=== PATIENT | female | born 1980 | race African-American/Black ===

== ENCOUNTER 2017-04-06 11:35 | Emergency (ER) | payer BC, MEDICAID, OTHER ==
[2017-04-06 11:48] VITALS: RESP 16; TEMP 97.5
--- NOTE | 2017-04-06 12:15 | CPEKG ---
Heart Rate: 90 RR Interval: 667 P-R Interval: 168 QRSD Interval: 78 QT Interval: 328 QTC Interval: 402 P Argonne: 40 QRS Argonne: 23 T Wave Argonne: 11 EKG Severity - NORMAL ECG - EKG Impression: SINUS RHYTHM Electronically Signed By: Jarod Gillette 06-Apr-2017 14:50:02
--- NOTE | 2017-04-06 12:27 | EDPHY ---
H & P Stated Complaint: 2 WEEKS CHEST PAIN, SAW LUGGAGE LINER ON SUN, STARTED ON BP MED Time Seen by Provider: 04/06/17 12:26 - Personal History LMP (Females 10-55): Hysterectomy Current Tetanus Diphtheria and Acellular Pertussis (TDAP): Unsure - Medical/Surgical History Hx Asthma: No Hx Chronic Respiratory Disease: No Hx Diabetes: Yes Hx Cardiac Disease: No Hx Renal Disease: No Hx Cirrhosis: No Hx Alcoholism: No Hx HIV/AIDS: No Hx Splenectomy or Spleen Trauma: No Other PMH: DENIES - Social History Smoking Status: Light smoker Constitutional: Initial Vital Signs Temperature (C) 36.4 C 04/06/17 11:44 Heart Rate 98 04/06/17 11:44 Respiratory Rate 16 04/06/17 11:44 Blood Pressure 153/105 H 04/06/17 11:44 O2 Sat (%) 99 04/06/17 11:44 O2 Delivery Mode Room Air Allergies/Adverse Reactions: codeine Allergy (Verified 04/06/17 11:49) morphine Allergy (Verified 04/06/17 11:49) promethazine [From Phenergan] Allergy (Verified 04/06/17 11:49) Medical Decision Making ED Course/Re-evaluation: CHIEF COMPLAINT: Chest pain HISTORY OF PRESENT ILLNESS: This patient is a 36 year old female complaining of sharp left sided chest pains and dizziness for the last two weeks. She saw a cage clerk Sunday, four days ago and has had an EKG and lab work. She has had a US of her kidneys to rule out renal hypertension as well. She has just started Lisinopril. Her symptoms begin with dizziness, then shortness of breath, then shooting pains in her chest, then tachycardia. These episodes last from a couple minutes to one hour. They are generally worse when she is at rest. Today at work, she developed the chest pains again. This episode lasted one hour and her symptoms were still present when she arrived here, but are currently resolving. She denies any additional stress lately. She denies recent illness or trauma. No vomiting, shortness of breath, urinary complaints, or other associated symptoms. REVIEW OF SYSTEMS: A 10 point review of systems was performed and is negative with the exception of the elements mentioned in the history of present illness. PHYSICAL EXAM: HR, BP, O2 Sat, RR. Temp noted General Appearance: Alert, well hydrated, appropriate, and non-toxic appearing. Head: Atraumatic without scalp tenderness or obvious injury Eyes: Pupils equal, round, reactive to light and accommodation, EOMI, no trauma , no injection. Ears: Clear bilaterally, no perforation, normal landmarks Nose: Atraumatic, no rhinorrhea, clear. Throat: There is no erythema or exudates, no lesions, normal tonsils, mucus membranes moist. Neck: Supple, 2+ carotid upstroke, nontender, no lymphadenopathy. Respiratory: No retractions, no distress, no wheezes, and no accessory muscle use. Lungs are clear to auscultation bilaterally. Cardiovascular: Regular rate and rhythm, no murmurs, rubs, or gallops. Bilateral carotid, radial, dorsalis pedis, and posterior tibial pulses intact. Good capillary refill all extremities. Gastrointestinal: Abdomen is soft, nontender, non-distended, no masses, no rebound, no guarding, no peritoneal signs. Musculoskeletal: Normal active ROM of all extremities, atraumatic. Neurological: Alert, appropriate, and interactive. The patient has normal DTRs and non-focal cranial nerves, motor, sensory, and cerebellar exam. Skin: No rashes, good turgor, no nodules on palpation. Past medical history: Denies Past surgical history: Noncontributory Family history: Noncontributory Social history: Works as a vice president of finance. Lives in [place]. Occasional tobacco use. EKG: Sinus rhythm. Rate 90. DIFFERENTIAL DIAGNOSIS: The differential diagnosis for the patient's chest pain included but was not limited to myocardial ischemia, pulmonary embolus, chest wall pain, pleural inflammation, and pulmonary infectious causes. MEDICAL DECISION MAKIN36 y/o female presents with multiple episodes of chest pain over the last two weeks. Plan for EKG, labs including CBC, BMP, Troponin, D-dimer, and BNP. Plan for echocardiogram. Echocardiogram normal. Labs unremarkable. EKG shows Plan to discharge home in good condition. Follow up and return precautions discussed. The patient is comfortable with this plan. - Data Points Laboratory Results: Laboratory Results 04/06/17 12:10 04/06/17 12:10 04/06/17 04/06/17 04/06/17 12:10 12:10 12:10 WBC 4.50 10^3/uL 10^3/uL (3.80-9.50) RBC 5.11 10^6/uL 10^6/uL (4.18-5.33) Hgb 14.7 g/dL g/dL (12.6-16.3) Hct 43.6 % % (38.0-47.0) MCV 85.3 fL fL (81.5-99.8) MCH 28.8 pg pg (27.9-34.1) MCHC 33.7 g/dL g/dL (32.4-36.7) RDW 13.2 % % (11.5-15.2) Plt Count 305 10^3/uL 10^3/uL (150-400) MPV 10.3 fL fL (8.7-11.7) Neut % (Auto) 38.5 % L % (39.3-74.2) Lymph % (Auto) 49.6 % H % (15.0-45.0) Buchanan % (Auto) 8.4 % % (4.5-13.0) Eos % (Auto) 2.9 % % (0.6-7.6) Baso % (Auto) 0.4 % % (0.3-1.7) Nucleat RBC Rel Count 0.0 % % (0.0-0.2) Absolute Neuts (auto) 1.73 10^3/uL 10^3/uL (1.70-6.50) Absolute Lymphs (auto) 2.23 10^3/uL 10^3/uL (1.00-3.00) Absolute Monos (auto) 0.38 10^3/uL 10^3/uL (0.30-0.80) Absolute Eos (auto) 0.13 10^3/uL 10^3/uL (0.03-0.40) Absolute Basos (auto) 0.02 10^3/uL 10^3/uL (0.02-0.10) Absolute Nucleated RBC 0.00 10^3/uL 10^3/uL (0-0.01) Immature Gran % 0.2 % % (0.0-1.1) Immature Gran # 0.01 10^3/uL 10^3/uL (0.00-0.10) D-Dimer < 0.27 ug/mLFEU ug/mLFEU (0.00-0.50) Sodium 140 mEq/L mEq/L (134-144) Potassium 3.4 mEq/L L mEq/L (3.5-5.2) Chloride 102 mEq/L mEq/L (97-110) Carbon Dioxide 24 mEq/l mEq/l (22-31) Anion Gap 14 mEq/L mEq/L (8-16) BUN 15 mg/dL mg/dL (7-23) Creatinine 0.9 mg/dL mg/dL (0.6-1.0) Estimated GFR > 60 Glucose 91 mg/dL mg/dL (70-100) Calcium 10.3 mg/dL mg/dL (8.5-10.4) Troponin I < 0.012 ng/mL ng/mL (0.000-0.034) NT-Pro-B Natriuret Pep 49 pg/mL pg/mL (0-125) Departure - Departure Disposition: Home, Routine, Self-Care Clinical Impression: Atypical chest pain Condition: Good Instructions: Chest Pain (ED) Additional Instructions: 1. Continue to follow up with your regular cage clerk and primary care provider for further evaluation. 2. Return to the Emergency Department for fever, chest pain, shortness of breath , increasing pain or other worsening of condition. Referrals: [facility] [Other] - As per Instructions Report Scribed for: Jarod Gillette Report Scribed by: Lisa Cortez Date of Report: 04/06/17 Time of Report: 12:46
[2017-04-06 12:52] LABS: % IMMATURE GRANULYOCYTES 0.2 % (0.0-1.1); ABSOLUTE IMMATURE GRANULOCYTES 0.01 10^3/uL (0.00-0.10); ADD DIFF? NO; ADD MORPH? NO; ADD SCAN? NO; ATYPICAL LYMPHOCYTE FLAG 10 (0-99); FRAGMENT RBC FLAG 0 (0-99); HEMATOCRIT 43.6 % (38.0-47.0); HEMOGLOBIN 14.7 g/dL (12.6-16.3); LEFT SHIFT FLG 0 (0-99); LIPEMIA HEMOLYSIS FLAG 80 (0-99); MEAN CELL HEMOGLOBIN 28.8 pg (27.9-34.1); MEAN CELL HEMOGLOBIN CONCENTR. 33.7 g/dL (32.4-36.7); MEAN CELL VOLUME 85.3 fL (81.5-99.8); MEAN PLATELET VOLUME 10.3 fL (8.7-11.7); PLATELET CLUMPS FLAG 0 (0-99); PLATELET COUNT 305 10^3/uL (150-400); RED BLOOD CELL COUNT 5.11 10^6/uL (4.18-5.33); RED CELL DISTRIBUTION WIDTH 13.2 % (11.5-15.2)
[2017-04-06 12:57] LABS: ANION GAP 14 mEq/L (8-16); CALCIUM 10.3 mg/dL (8.5-10.4); CARBON DIOXIDE 24 mEq/l (22-31); CHLORIDE 102 mEq/L (97-110); CREATININE 0.9 mg/dL (0.6-1.0); GLOMERULAR FILTRATION RATE > 60; GLUCOSE 91 mg/dL (70-100); POTASSIUM 3.4 mEq/L (3.5-5.2); SODIUM 140 mEq/L (134-144)
[2017-04-06 13:09] LABS: TROPONIN I < 0.012 ng/mL (0.000-0.034)
[2017-04-06 14:00] VITALS: BP 127/96; PULSE 87; O2SAT 96
--- NOTE | 2017-04-06 18:11 | ECHO ---
[email or web address] [address] [address] Main: [phone] Fax: Transthoracic Echocardiogram Name: LAUREN COULTER MR#: [id number] Study Date: 04/06/2017 Study Time: 01:26 PM Date of : 1980 Age: 36 year(s) Height: 160 cm (63 in.) Weight: 70.31 kg (155 lb.) BSA: 1.74 m2 Gender: Female Examination: Echo Indication: Chest Pain, Known hypertension Image Quality: Contrast: Requested by: Jarod Gillette BP: 125 mmHg/96 mmHg Heart Rate: Rhythm: Indication: Chest Pain, Known hypertension Procedure Staff Under Cutting Machine Operator: Sahil Pham Reading Physician: Felix Ga Requesting Provider: Conclusions: Normal size left ventricle. Mild concentric LV hypertrophy. Normal global systolic LV function. EF is 68 %. No regional wall motion abnormality. Diastolic dysfunction is present. . There are no significant valvular abnormalities. Measurements: Chambers Valvular Assessment AV/MV Valvular Assessment TV/PV Normal Normal Normal Name Value Range Name Value Range Name Value Range Ao Merry (MM): 2.8 cm (2.2 cm-3.7 AV Vmax: 1.11 m/s (1 m/s-1.7 PV Vmax: 0.73 m/s (0.6 m/s-0.9 cm) m/s) m/s) IVSd (2D): 1.0 cm (0.6 cm-1.1 AV maxP mmHg ( - ) PV PGmax: 2 mmHg ( - ) cm) LVOT Vmax: 0.73 m/s (0.7 m/s-1.1 LVDd (2D): 4.4 cm (3.9 cm-5.3 m/s) cm) MV E Vmax: 0.54 m/s ( - ) LVDs (2D): 2.7 cm (2.1 cm-4 MV A Vmax: 0.70 m/s ( - ) cm) MV E/A: 0.77 ( - ) LVPWd (2D): 1.0 cm ( - ) LVEF (2D): 68 (>=54 %) Continued Measurements: Chambers Valvular Assessment AV/MV Name Value Name Value LADs Lon.7 cm MV E/E' Septal: 8.40 LA Area: 14.7 cm2 MV E/E' Lateral: 4.10 Patient: LAUREN COULTER Study Date: 04/06/2017 Page 1 of 2 01:26 PM Findings: Left Ventricle: Normal size left ventricle. Mild concentric LV hypertrophy. Normal global systolic LV function. EF is 68 %. No regional wall motion abnormality. Diastolic dysfunction is present. . Right Ventricle: Normal size right ventricle. Normal RV function. Left Atrium: The left atrium is normal in size. Right Atrium: The right atrium is normal in size. Mitral Valve: The mitral valve is normal in appearance and function. There is no mitral valve regurgitation. No mitral stenosis is present. Aortic Valve: The aortic valve is normal in appearance and function. The aortic valve is tri-leaflet. There is no aortic valve regurgitation. No aortic valve stenosis is present. Tricuspid Valve: The tricuspid valve is normal in appearance and function. There is no tricuspid valve regurgitation. Pulmonic Valve: The pulmonic valve is normal in appearance and function. Aorta: The aorta is normal. Pericardium: No pericardial effusion. (No Signature Object) Patient: LAUREN COULTER Study Date: 04/06/2017 Page 2 of 2 01:26 PM [id number]
== END 2017-04-06 14:00 | disposition home or self-care (01) ==
DX: R07.89 Other chest pain (principal); F17.200 Nicotine dependence, unspecified, uncomplicated